=== PATIENT | female | born 1970 | race Caucasian/White ===

== ENCOUNTER 2016-09-04 12:35 | Emergency (ER) | payer MEDICAID, MEDICARE, OTHER ==
[2016-09-04] MEDS ORDERED: Acetaminophen 325 MG Tab PO ONE (13:23)
--- NOTE | 2016-09-04 13:53 | EDM.PDOC ---
ED HPI GENERAL MEDICAL PROBLEM - General Chief Complaint: Genitourinary Problem Stated Complaint: UTI? Time Seen by Provider: 09/04/16 13:51 Source of Information: Reports: Patient History Limitations: Reports: No Limitations - History of Present Illness INITIAL COMMENTS - FREE TEXT/NARRATIVE: pt is in the area biking and suddenly last nite began to have the chills and she has become progressively more ill. Onset: Sudden, Other ( lst nite. ) Duration: Hour(s): Location: Reports: Abdomen Associated Symptoms: Reports: Diaphoresis, Fever/Chills, Loss of Appetite, Nausea/Vomiting, Other ( diarrhea. ) Abdomen Pain Score (Numeric/FACES): 8 - Related Data Allergies Allergy/AdvReac Type Severity Reaction Status Date / Time No Known Allergies Allergy Verified 09/04/16 12:59 Home Meds: Home Meds NK [No Known Home Meds] 09/04/16 [History] Past Medical History Genitourinary History: Reports: Renal Calculus - Past Surgical History GI Surgical History: Reports: Cholecystectomy Oncologic Surgical History: Reports: Other (See Below) Other Oncologic Surgeries/Procedures: lymph node removed from neck benign. Social & Family History - Tobacco Use Smoking Status *Q: Never Smoker - Alcohol Use Days Per Week of Alcohol Use: 1 Number of Drinks Per Day: 4 Total Drinks Per Week: 4 - Recreational Drug Use Recreational Drug Use: No ED ROS GENERAL - Review of Systems Review Of Systems: See Below Constitutional: Reports: Fever, Chills, Malaise HEENT: Reports: No Symptoms Respiratory: Reports: No Symptoms Cardiovascular: Reports: No Symptoms Endocrine: Reports: No Symptoms GI/Abdominal: Reports: Diarrhea, Decreased Appetite : Reports: Other (pt has blood in the urine) Musculoskeletal: Reports: No Symptoms Skin: Reports: No Symptoms Neurological: Reports: No Symptoms ED EXAM, GI/ABD - Physical Exam Exam: See Below Text/Narrative:: pt developed shaking chill last nite after swimming. She has had a fever all day. She has vomited and had loose stools but she has not had any loose stools since arrival. She has had lower abdomanal cramping. She has not noted blood in the urine. Exam Limited By: No Limitations General Appearance: Alert, Anxious, Moderate Distress Eyes: Bilateral: Normal Appearance, EOMI Ears: Normal TMs Nose: Normal Inspection Throat/Mouth: Normal Inspection Head: Atraumatic Neck: Normal Inspection Respiratory/Chest: No Respiratory Distress Cardiovascular: Regular Rate, Rhythm, Tachycardia GI/Abdominal: Other (mildlower abdomanal tenderness. ) (Female) Exam: Deferred Rectal (Female) Exam: Deferred Back Exam: Normal Inspection Extremities: Normal Inspection Neurological: Alert, Oriented, Normal Cognition Skin Exam: Warm Course - Vital Signs Last Recorded V/S: Last Vital Signs Temp 37.1 C 09/04/16 17:14 Pulse 75 09/04/16 17:14 Resp 14 09/04/16 17:14 BP 121/85 09/04/16 17:14 Pulse Ox 97 09/04/16 17:14 - Orders/Labs/Meds Labs: Laboratory Tests 09/04/16 09/04/16 09/04/16 Range/Units 12:57 13:08 13:08 WBC 11.6 H (4.5-11.0) K/uL RBC 4.66 (3.30-5.50) M/uL Hgb 13.2 (12.0-15.0) g/dL Hct 40.1 (36.0-48.0) % MCV 86 (80-98) fL MCH 28 (27-31) pg MCHC 33 (32-36) % Plt Count 175 (150-400) K/uL Neut % (Auto) 93 H (36-66) % Lymph % (Auto) 3 L (24-44) % [place] % (Auto) 3 (2-6) % Eos % (Auto) 1 L (2-4) % Baso % (Auto) 0 (0-1) % Sodium 136 L (140-148) mmol/L Potassium 4.2 (3.6-5.2) mmol/L Chloride 100 (100-108) mmol/L Carbon Dioxide 27 (21-32) mmol/L Anion Gap 13.2 (5.0-14.0) mmol/L BUN 10 (7-18) mg/dL Creatinine 1.0 (0.6-1.0) mg/dL Est Cr Clr Drug Dosing 70.16 mL/min Estimated GFR (MDRD) 59 L (>60) Glucose 135 H (74-106) mg/dL Lactic Acid (0.4-2.0) mmol/L Calcium 8.6 (8.5-10.1) mg/dL Total Bilirubin 1.3 H (0.2-1.0) mg/dL AST 26 (15-37) U/L ALT 33 (12-78) U/L Alkaline Phosphatase 71 (46-116) U/L C-Reactive Protein (0.0-0.3) mg/dL Total Protein 7.2 (6.4-8.2) g/dL Albumin 3.4 (3.4-5.0) g/dL Globulin 3.8 H (2.3-3.5) g/dL Albumin/Globulin Ratio 0.9 L (1.2-2.2) Urine Color Yellow Urine Appearance Slightly cloudy Urine pH 9.0 H (4.5-8.0) Ur Specific [place] 1.015 (1.008-1.030) Urine Protein Negative (NEGATIVE) mg/dL Urine Glucose (UA) Normal (NEGATIVE) mg/dL Urine Ketones Negative (NEGATIVE) mg/dL Urine Occult Blood Moderate (NEGATIVE) Urine Nitrite Negative (NEGATIVE) Urine Bilirubin Negative (NEGATIVE) Urine Urobilinogen Normal (NORMAL) mg/dL Ur Leukocyte Esterase Moderate (NEGATIVE) Urine RBC 10-20 H (0-5) Urine WBC 10-20 H (0-5) Ur Epithelial Cells Few Amorphous Sediment Rare Urine Bacteria Few Urine Mucus Rare 09/04/16 09/04/16 Range/Units 13:18 13:50 WBC (4.5-11.0) K/uL RBC (3.30-5.50) M/uL Hgb (12.0-15.0) g/dL Hct (36.0-48.0) % MCV (80-98) fL MCH (27-31) pg MCHC (32-36) % Plt Count (150-400) K/uL Neut % (Auto) (36-66) % Lymph % (Auto) (24-44) % [place] % (Auto) (2-6) % Eos % (Auto) (2-4) % Baso % (Auto) (0-1) % Sodium (140-148) mmol/L Potassium (3.6-5.2) mmol/L Chloride (100-108) mmol/L Carbon Dioxide (21-32) mmol/L Anion Gap (5.0-14.0) mmol/L BUN (7-18) mg/dL Creatinine (0.6-1.0) mg/dL Est Cr Clr Drug Dosing mL/min Estimated GFR (MDRD) (>60) Glucose (74-106) mg/dL Lactic Acid 1.4 (0.4-2.0) mmol/L Calcium (8.5-10.1) mg/dL Total Bilirubin (0.2-1.0) mg/dL AST (15-37) U/L ALT (12-78) U/L Alkaline Phosphatase (46-116) U/L C-Reactive Protein 12.53 H (0.0-0.3) mg/dL Total Protein (6.4-8.2) g/dL Albumin (3.4-5.0) g/dL Globulin (2.3-3.5) g/dL Albumin/Globulin Ratio (1.2-2.2) Urine Color Urine Appearance Urine pH (4.5-8.0) Ur Specific [place] (1.008-1.030) Urine Protein (NEGATIVE) mg/dL Urine Glucose (UA) (NEGATIVE) mg/dL Urine Ketones (NEGATIVE) mg/dL Urine Occult Blood (NEGATIVE) Urine Nitrite (NEGATIVE) Urine Bilirubin (NEGATIVE) Urine Urobilinogen (NORMAL) mg/dL Ur Leukocyte Esterase (NEGATIVE) Urine RBC (0-5) Urine WBC (0-5) Ur Epithelial Cells Amorphous Sediment Urine Bacteria Urine Mucus Meds: Medications Discontinued Medications Generic Name Dose Route Start Last Admin Trade Name Freq PRN Reason Stop Dose Admin Acetaminophen 650 mg 09/04/16 13:23 09/04/16 13:39 Tylenol PO 09/04/16 13:24 650 mg NOW ONE Administration Sodium Chloride 1,000 mls @ 999 mls/hr 09/04/16 15:00 09/04/16 16:00 Normal Saline IV 999 mls/hr ASDIRECTED JOLENE Administration Sodium Chloride 89 mls @ 3 mls/sec 09/04/16 15:15 09/04/16 15:41 Normal Saline IV 3 mls/sec ASDIRECTED JOLENE Administration Ceftriaxone Sodium 1 gm/ 50 mls @ 100 mls/hr 09/04/16 17:16 09/04/16 17:37 Sodium Chloride IV 09/04/16 17:45 100 mls/hr ONETIME ONE Administration Iopamidol 150 ml 09/04/16 15:15 09/04/16 15:41 Isovue-300 (61%) IV 09/05/16 15:16 150 ml . DIRECTED PRN Administration RADIOLOGY EXAM Sodium Chloride 10 ml 09/04/16 15:15 09/04/16 15:41 Saline Flush FLUSH 09/04/16 15:16 10 ml ONETIME ONE Administration - Re-Assessments/Exams Free Text/Narrative Re-Assessment/Exam: 09/04/16 17:21 pt had a c reactive protein of greater than 12. Her wbc was elevated. Her urine had greater than 20 rbc. Her cat scan of the abdoman showed a 8 mm stone just outside of the bladder causing a hydro. 09/05/16 19:06 09/05/16 19:07 Dr Schmidt urology was consulted and he will see her and place a stent tonight. She was given rocephen 1 gm iv. Departure - Departure Time of Disposition: 17:22 Disposition: DC/Tfer to Acute Hospital 02 Condition: Fair Clinical Impression: Ureteral stone with hydronephrosis, Sepsis - Discharge Information Referrals: PCP,None [Primary Care Provider] - Forms: ED Department Discharge Care Plan Goals: continue fluids at 300cc per hour transfer to [facility]. push the cat scan to [facility].
--- NOTE | 2016-09-04 14:16 | CR ---
Chest 2V HISTORY: fever COMPARISON: None FINDINGS: Lungs appear clear and normally aerated. Cardiomediastinal silhouette is within normal limits. No va scular redistribution or pleural fluid can be seen. Bony structures and soft tissues are unremarkabl e. IMPRESSION: No acute chest abnormality identified.
[2016-09-04] MEDS ORDERED: Sodium Chloride 0.9% 1,000 ML IV SCH (15:00)
[2016-09-04] MEDS ORDERED: Iopamidol 612 MG/ML 150 ML Bottle IV PRN (15:15)
[2016-09-04] MEDS ORDERED: Sodium Chloride 0.9% 10 ML Syringe FLUSH ONE (15:15)
[2016-09-04 17:15] VITALS: BP 121/85
[2016-09-04] MEDS ORDERED: cefTRIAXone 1 GM in Sodium Chloride 0.9% 50 ML IV ONE (17:16)
== END 2016-09-04 18:27 ==
LOC: JP.ED 12:35
DX: N13.2 Hydronephrosis with renal and ureteral calculous obstruction (principal); A41.9 Sepsis, unspecified organism
CPT/HCPCS: 36415; 71020; 74177; 80053; 81001; 83605; 85025; 86140; 87040; 87086; 87088; 87186; 96361; 96365; 99284; A9270; J0696; J7030; J7040; J7050